=== PATIENT | female | born 1975 | race Caucasian/White ===

== ENCOUNTER 2022-09-19 11:21 | Emergency (ER) | payer BC ==
[~2022-09-19] VITALS: Ht 162.6 cm; Wt 72.7 kg
[2022-09-19 11:44] VITALS: BP 134/73; PULSE 92; TEMP 98.3
[2022-09-19] MEDS ORDERED: CRUTCHES MC (14:54)
== END 2022-09-19 12:32 | disposition home or self-care (01) ==
LOC: COL.ER 11:21
DX: S81.812A Laceration without foreign body, left lower leg, initial encounter (principal); Z28.310 Unvaccinated for COVID-19; X58.XXXA Exposure to other specified factors, initial encounter; Y93.73 Activity, racquet and hand sports